=== PATIENT | female | born 1980 | race Caucasian/White ===

== ENCOUNTER 2020-06-14 11:15 | Emergency (ER) | payer OTHER, SELFPAY ==
--- NOTE | ~2020-06-14 | XR_ITS ---
EXAMINATION: XR chest 1V portable EXAM DATE: 06/14/2020 13:58 INDICATION: Chest pain, high blood pressure. TECHNIQUE: Portable AP frontal chest x-ray was obtained. There is no prior study for comparison. FINDINGS: The lungs are clear. There are no pleural effusions. The cardiomediastinal silhouette is within normal limits. There is no pneumothorax suspected. The bones and soft tissues are unremarkab le. IMPRESSION: Unremarkable chest x-ray exam. Reviewed, dictated and finalized at location A. OR CENTER DIRECTOR
--- NOTE | ~2020-06-14 | CT_ITS ---
EXAMINATION: CTA brain carotid EXAM DATE: 06/14/2020 14:48 INDICATION: Dizziness. TECHNIQUE: Noncontrast head CT. Spiral CTA of the carotid arteries was performed with intravenous i njection 100 cc of Omnipaque 350. Axial, coronal, sagittal reformatted images reviewed. Additional r eformatted images created on dedicated 3-D workstation. NASCET comparable standard used to assess th e degree of arterial stenosis. Spiral CT angiogram cerebral arteries performed with the same intrave nous injection of contrast. Source images of the brain CTA transferred to dedicated workstation for 3 -D rotational image creation. Coronal, sagittal maximum intensity pixel images also reviewed. The d ose-length product (DLP) for this examination was 1568.59 mGy-cm. The exposure was tailored accordi ng to patient size, and iterative reconstruction (ASIR) was used as additional dose reduction techniq ue. There is no prior study for comparison. FINDINGS: The right vertebral artery is dominant. There is no carotid stenosis. Some tortuosity of th e carotid arteries just before the skull base. There is no carotid or vertebral basilar arterial dis section or fibromuscular dysplasia. There are no cerebral artery aneurysms. There is symmetric cerebr al artery arborization. The sagittal, transverse and sigmoid sinuses enhance normally, no venous sinu s thrombosis. Internal cerebral veins also enhance normally. There is no acute intraparenchymal hemorrhage. No evidence of intraparenchymal brain mass lesion. N o evidence of acute infarction. There is no mass effect or midline shift. There is no obstructive hyd rocephalus suspected. There are no extra-axial collections. There are no calvarial acute fractures. IMPRESSION: 1. No acute intracranial findings.. 2. No carotid stenosis. Reviewed, dictated and finalized at location A. METRY ASSISTANT
[2020-06-14 11:30] VITALS: BP 168/101; PULSE 79; RESP 18; TEMP 37.4; O2SAT 99
--- NOTE | 2020-06-14 13:26 | ECG_ITS ---
Measurements Intervals [place] Rate: 83 P: 49 CT: 144 QRS: 76 QRSD: 102 T: 38 QT: 374 QTc: 440 Interpretive Statements SINUS RHYTHM WITH SINUS ARRHYTHMIA POSSIBLE LEFT ATRIAL ENLARGEMENT BORDERLINE ECG Electronically Signed On 06-14-2020 15:58:06 AUDITING SPECIALIST by Elkin Torrez D.O.
--- NOTE | 2020-06-14 13:44 | ED.GENADULT ---
HPI - General Adult General Chief complaint: Dizziness Stated complaint: dizzy/htn Source: patient History of Present Illness HPI narrative: Patient is a 40 y/o female complaining of moderate dizziness starting sometime between 10:00 AM and 10:30 AM this morning. She states she was working at home when this started. She felt her head was spinning and everything slowed down. She felt like she was going to pass out, but did not actually pass out. She checked her BP and it was 200s/120s. She denies any focal weakness or numbness. She has some mild left sided chest pain which she rates as 10. Related Data Home Medications Medication Instructions Recorded Confirmed alprazolam [Xanax] 0.5 mg PO DIRECTED PRN 06/21/19 06/22/19 ibuprofen 600 mg PO Q6H PRN 06/21/19 06/22/19 loratadine 10 mg PO DAILY PRN 06/21/19 06/22/19 naproxen sodium 440 mg PO BID PRN 06/21/19 06/22/19 ranitidine HCl 75 mg PO DIRECTED 06/21/19 06/22/19 venlafaxine 150 mg PO DAILY 06/21/19 06/22/19 Allergies Allergy/AdvReac Type Severity Reaction Status Date / Time Sulfa (Sulfonamide Allergy Mild Rash Verified 06/22/19 00:15 Antibiotics) morphine Allergy Unknown Rash Verified 06/22/19 00:15 Review of Systems Constitutional: Constitutional: Denies chills, Denies fever(s), Denies headache(s) and Denies weakness Eyes: Eyes: Denies blurry vision ENT: Denies headache(s) and Denies neck pain Cardiovascular: Cardiovascular: Reports chest pain and Denies dyspnea Respiratory: Respiratory: Denies cough and Denies dyspnea Gastrointestinal: Gastrointestinal: Denies abdominal pain, Denies diarrhea, Denies nausea and Denies vomiting Genitourinary: Genitourinary: Denies hematuria and Denies dysuria Musculoskeletal: Musculoskeletal: Denies back pain and Denies neck pain Neurologic: Reports dizziness, Denies headache(s) and Denies weakness PMFSH Past Medical History Medical History Migraines Surgical History Surgical History History of section Social History Social History Smoking packs per day: 1 Smoking cigarettes per day: 20.0 Years smoked: 12 Smoking pack-years: 12.00 Smoking status: Former smoker Tobacco type: cigarettes Second hand tobacco smoke exposure: No Smoking end date: 07/29/09 Alcohol intake: current Drinks per week: 1 Substance use: never Gender identity (if verbalized by the patient): Female Spiritual care concerns: Yes Agree to blood products: Yes Exam Const: General: no acute distress and well developed Orientation/consciousness: oriented to person, oriented to place, oriented to time and patient oriented x3 HENMT: Head: normocephalic Ears: external ears normal General nose exam: Normal external nose present Eyes: General: appearance normal, both eyes and all related structures Conjunctivae: conjunctivae normal Neck: Neck: normal visual inspection and full ROM Chest: Chest palpation & inspection: normal inspection of the chest and no tenderness Resp: Effort & Inspection: normal respiratory effort Auscultation: clear to auscultation bilaterally Cardio: Rate: regular rate Rhythm: regular rhythm GI: GI Palp: No abdominal tenderness and Yes Soft to palpation Skin: General skin exam: normal color and turgor normal Neuro: General: oriented to person, oriented to place, oriented to time and patient oriented x3 Cranial nerves: Yes CN's II-XII intact bilaterally Cognition (Neuro): normal cognition Speech: normal speech Motor exam (neuro): 5/5 motor strength present throughout Sensory Exam: normal sensation Coordination: [id number] test normal and [id number] test normal Extrem: General: normal to inspection, full ROM and no pedal edema Psych: Appearance: grossly normal Mental Status: mental status grossly normal Aff
[2020-06-14] MEDS: amLODIPine BESYLATE 5 MG TABLET 10 MG PO (13:50)
[2020-06-14 13:58] VITALS: BP 176/102; PULSE 100; RESP 18; O2SAT 100
[2020-06-14 14:07] LABS: Basophils Percent Auto 0.4 % (0.2-1.2); Eosinophils Absolute Auto 0.1 K/mm3 (0-0.3); Eosinophils Percent Auto 0.6 % (0-4.4); Hematocrit 41.9 % (37.0-47.0); Hemoglobin 13.7 g/dL (12.0-15.0); Immature Granulocyte Absolute 0.02 K/mm3 (0.00-0.031); Immature Granulocyte Percent A 0.2 % (0-0.5); Lymphocytes Absolute Auto 2.08 K/mm3 (0.9-3.2); Mean Corpuscular HGB Conc 32.7 g/dl (32-36); Mean Corpuscular Hemoglobin 28.4 pg (26-34); Mean Corpuscular Volume 86.7 fl (80-100); Mean Platelet Volume 9.9 fl (7.4-10.4); Monocytes Absolute Auto 0.5 K/mm3 (0.1-0.6); Monocytes Percent Auto 5.3 % (2.6-8.5); Neutrophils Absolute Auto 6.8 K/mm3 (1.3-6.7); Neutrophils Percent Auto 71.5 % (45.5-73.1); Platelet Count Result 320 k/mm3 (150-375); Red Blood Count 4.83 M/mm3 (4.2-5.4); White Blood Count 9.5 K/mm3 (4.5-10.0)
[2020-06-14 14:26] LABS: Alanine Aminotransferase 17 U/L (4-35); Albumin Level 4.3 g/dL (3.5-5.1); Alkaline Phosphatase 99 U/L (38-126); Anion Gap 8 mmol/L (8-16); Aspartate Amino Transferase 24 U/L (14-36); Bilirubin,Total 0.2 mg/dL (0.2-1.3); Calcium 9.7 mg/dL (8.4-10.2); Carbon Dioxide 29 mmol/L (22-30); Chloride 104 mmol/L (98-107); Estimated CRCL calculation 117 ml/min; Estimated Glomerular Filt Rate > 60; Glucose 89 mg/dL (65-105); Potassium 4.2 mmol/L (3.4-5.0); Sodium 141 mmol/L (137-145)
[2020-06-14 14:36] LABS: Troponin I < 0.012 ng/mL (0.000-0.034)
[2020-06-14 14:39] LABS: Blood Urea Nitrogen 12 mg/dL (7-17)
[2020-06-14 14:45] LABS: Add Urine Microscopic? NO; Appearance Urine Clear (Clear); Bilirubin Urine Negative (Negative); Blood Urine Negative (Negative); Color Urine Yellow (Yellow); Glucose Urine UA Negative (Negative); Ketones Urine Negative (Negative); Leukocyte Esterase Ur Negative LEU/UL (Negative); Nitrate Urine Negative (Negative); Protein Urine Negative (Negative); Specific Grav Ur 1.013 (1.001-1.035); Urobilinogen Urine Negative mg/dL (<2.0)
[2020-06-14 16:00] VITALS: BP 170/86; PULSE 86; RESP 26; O2SAT 100
[2020-06-14 17:15] LABS: Troponin I < 0.012 ng/mL (0.000-0.034)
== END 2020-06-14 18:13 | disposition home or self-care (01) ==
PROVIDERS: Emergency Provider Emergency Medicine; PCP Family Medicine
DX: R42 Dizziness and giddiness (principal); I10 Essential (primary) hypertension; R07.9 Chest pain, unspecified; Z87.891 Personal history of nicotine dependence; R94.31 Abnormal electrocardiogram [ECG] [EKG]
CPT/HCPCS: 36415; 70496; 70498; 71045; 80053; 81003; 81025; 84484; 85025; 93005; 99284; A9270; Q9967

== ENCOUNTER 2021-11-11 00:18 | Emergency (ER) | payer OTHER, SELFPAY ==
--- NOTE | ~2021-11-11 | XR_ITS ---
EXAMINATION: XR chest 2V DATE: 11/11/2021 00:51 INDICATION: Left chest pain. TECHNIQUE: Frontal and lateral views of the chest were obtained. COMPARISON: Chest single view 06/14/2020 FINDINGS: The chest demonstrates clear lungs without pneumonia, pleural effusion, or pneumothorax. Th e heart size is normal. IMPRESSION: 1. No acute cardiopulmonary disease. Reviewed, dictated and finalized at location A.
[2021-11-11 00:18] VITALS: BP 151/93; PULSE 117; RESP 23; TEMP 36.2; O2SAT 100
--- NOTE | 2021-11-11 00:23 | ED.CHESTPAIN ---
HPI - Chest Pain General Chief Complaint: Chest Pain Stated Complaint: CHEST PAIN History of Present Illness HPI narrative: Patient is a 41-year-old female with a history of hypertension and anxiety who presents to the emergency department via EMS for chest pain that she developed about 45 minutes prior to arrival. Patient states she was eating a bowl of cereal when she suddenly felt flushed, anxious, hot and developed a sharp pain in her left chest. Rates the pain remained for several minutes, she called EMS who recommended taking 4 baby aspirin. She states the pain is now about a 1 out of 10 after taking aspirin. Reports this history of similar type sensation once about 4 months ago, but has never had this worked up. She denies cough, shortness of breath, fevers, vomiting, calf pain, leg swelling. No OCP use. Related Data Home Medications Medication Instructions Recorded Confirmed ibuprofen 600 mg PO Q6H PRN 06/21/19 06/22/19 cholecalciferol (vitamin D3) 50 50 mcg PO DAILY 09/19/20 mcg (2,000 unit) capsule fluticasone propionate 50 1 spray INTRANASAL DAILY 09/19/20 mcg/actuation nasal spray,suspension loratadine [Claritin] 10 mg PO DAILY 11/11/21 multivitamin [A To Z Multivitamin] 1 tablet PO DAILY 11/11/21 Allergies Allergy/AdvReac Type Severity Reaction Status Date / Time amlodipine Allergy Severe Rash Verified 11/11/21 00:24 Sulfa (Sulfonamide Allergy Mild Rash Verified 11/11/21 00:24 Antibiotics) morphine Allergy Unknown Rash Verified 11/11/21 00:24 Review of Systems Review of Systems: Gen.: Reports flushing. Denies fevers or chills Eyes: Denies eye pain or visual change ENT: Denies congestion Respiratory: Denies shortness of breath or cough CV: Reports chest pain and palpitations. GI: Denies abdominal pain nausea, emesis or diarrhea : denies burning, urgency, frequency or hematuria Musculoskeletal: Denies back pain or muscle pain Neuro: Denies numbness, tingling, weakness or focal weakness Skin: Denies rash Except as documented, all other systems reviewed and negative All systems reviewed & are unremarkable except as noted in HPI and below PMFSH Past Medical History Medical History Bronchitis Chicken pox Migraines Psychiatric care Surgical History Surgical History History of section (~04/02/10) Family History Family History Father Hypertension Diabetes mellitus Depression Anxiety PTSD (post-traumatic stress disorder) Mother Breast cancer Hx of mastectomy H/O total hysterectomy OCD (obsessive compulsive disorder) Depression Sibling Depression OCD (obsessive compulsive disorder) Social History Social History Social History: Patient drinks 2 cups of coffee daily Smoking packs per day: 1 Smoking cigarettes per day: 20.0 Years smoked: 15 Smoking pack-years: 15.00 Smoking status: Former smoker Tobacco type: cigarettes Second hand tobacco smoke exposure: No Smoking end date: 07/29/08 Alcohol intake: current Alcohol use details: Patient drinks rarely Substance use: never Substance use type: does not use 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 Head: Normocephalic and atraumatic. EYES: PERRLA/EOMI, conjunctivae clear NOSE: No nasal drainage EARS: External ear normal in appearance THROAT: Oropharynx is clear. Mucous membranes are moist. NECK: Supple. No adenopathy, no masses. RESPIRATORY: Clear to auscultation th
[2021-11-11 00:25] VITALS: PULSE 112
--- NOTE | 2021-11-11 00:28 | ECG_ITS ---
Measurements Intervals [place] Rate: 107 P: 40 MD: 152 QRS: 68 QRSD: 106 T: 29 QT: 334 QTc: 446 Interpretive Statements SINUS TACHYCARDIA NONSPECIFIC T-WAVE ABNORMALITY ABNORMAL ECG Electronically Signed On 11-11-2021 11:47:21 CDT by Tip Holly M.D.
[2021-11-11 00:49] LABS: Basophils Percent Auto 0.3 % (0.2-1.2); Eosinophils Absolute Auto 0.1 K/mm3 (0-0.3); Eosinophils Percent Auto 1.1 % (0-4.4); Hematocrit 41.4 % (37.0-47.0); Hemoglobin 13.1 g/dL (12.0-15.0); Immature Granulocyte Absolute 0.03 K/mm3 (0.00-0.031); Immature Granulocyte Percent A 0.3 % (0-0.5); Lymphocytes Absolute Auto 2.95 K/mm3 (0.9-3.2); Lymphocytes Percent Auto 25.6 % (18.3-44.2); Mean Corpuscular HGB Conc 31.6 g/dl (32-36); Mean Corpuscular Hemoglobin 28.4 pg (26-34); Mean Corpuscular Volume 89.6 fl (80-100); Mean Platelet Volume 9.8 fl (7.4-10.4); Monocytes Absolute Auto 0.5 K/mm3 (0.1-0.6); Monocytes Percent Auto 4.6 % (2.6-8.5); Neutrophils Absolute Auto 7.9 K/mm3 (1.3-6.7); Neutrophils Percent Auto 68.1 % (45.5-73.1); Platelet Count Result 297 k/mm3 (150-375); Red Blood Count 4.62 M/mm3 (4.2-5.4); Red Cell Distribution Width 13.2 % (11.5-14.5); White Blood Count 11.5 K/mm3 (4.5-10.0)
[2021-11-11 01:01] LABS: Alanine Aminotransferase 17 U/L (4-35); Albumin Level 4.2 g/dL (3.5-5.1); Alkaline Phosphatase 105 U/L (38-126); Anion Gap 8 mmol/L (8-16); Aspartate Amino Transferase 23 U/L (14-36); Bilirubin,Total < 0.1 mg/dL (0.2-1.3); Blood Urea Nitrogen 15 mg/dL (7-17); Calcium 9.1 mg/dL (8.4-10.2); Carbon Dioxide 26 mmol/L (22-30); Chloride 104 mmol/L (98-107); Estimated CRCL calculation 106 ml/min; Estimated Glomerular Filt Rate > 60; Glucose 146 mg/dL (65-110); Potassium 3.6 mmol/L (3.4-5.0); Sodium 138 mmol/L (137-145)
[2021-11-11 01:13] LABS: Troponin I < 0.012 ng/mL (0.000-0.034)
[2021-11-11 02:01] VITALS: BP 149/79; PULSE 100; RESP 20; O2SAT 98
== END 2021-11-11 02:18 | disposition home or self-care (01) ==
PROVIDERS: Physician Assistant; Emergency Provider Emergency Medicine; PCP Emergency Medicine
DX: F41.9 Anxiety disorder, unspecified (principal); I10 Essential (primary) hypertension; Z87.891 Personal history of nicotine dependence; R00.0 Tachycardia, unspecified; R94.31 Abnormal electrocardiogram [ECG] [EKG]
CPT/HCPCS: 36415; 71046; 80053; 84443; 84484; 85025; 93005; 99284

== ENCOUNTER 2024-01-13 15:02 | Emergency (ER) | payer OTHER, SELFPAY ==
--- NOTE | 2024-01-13 15:05 | ED.FEMALEGU ---
HPI - Female Genitourinary General Chief complaint: Urogenital-Female Stated complaint: Urinary Problems Time Seen by Provider: 01/13/24 15:20 Source: patient, RN notes reviewed and old records reviewed Mode of arrival: ambulatory Limitations: no limitations History of Present Illness HPI Narrative: 42-year-old female presents to the [facility] with 1 day history of frequency, urgency, burning with urination Patient states that she took 1 azo last night and improved but symptoms are still there. Related Data Home Medications Medication Instructions Recorded Confirmed ibuprofen 600 mg tablet 600 mg PO Q6H PRN Pain 06/21/19 01/13/24 fluticasone propionate 50 1 spray intranasal DAILY 09/19/20 01/13/24 mcg/actuation nasal spray,suspension (Flonase Allergy Relief) loratadine 10 mg tablet (Claritin) 10 mg PO DAILY 11/11/21 01/13/24 multivitamin 1 tablet PO DAILY 11/11/21 01/13/24 cranberry extract 500 mg capsule 500 mg PO DAILY 07/01/23 01/13/24 Allergies Allergy/AdvReac Type Severity Reaction Status Date / Time amlodipine Allergy Severe Rash Verified 01/13/24 15:32 Sulfa (Sulfonamide Allergy Mild Rash Verified 01/13/24 15:32 Antibiotics) morphine Allergy Unknown Rash Verified 01/13/24 15:32 Review of Systems Review of Systems: All systems reviewed & are unremarkable except as noted in HPI and below Constitutional: Constitutional: Reports no additional constitutional complaints Eyes: Eyes: Reports no additional eye complaints ENT: Reports system reviewed and no additional complaints, except as documented Cardiovascular: Cardiovascular: Reports no additional cardiovascular complaints, Denies chest pain and Denies dyspnea Respiratory: Respiratory: Reports no additional respiratory complaints, Denies chest congestion, Denies cough and Denies dyspnea Gastrointestinal: Gastrointestinal: Reports no additional gastrointestinal complaints, Denies abdominal pain, Denies nausea and Denies vomiting Genitourinary: Genitourinary: Reports as per HPI Musculoskeletal: Musculoskeletal: Reports no additional musculoskeletal complaints Integumentary/Breasts: Skin/Breast: Reports system reviewed and no additional complaints, except as docu Neurologic: Reports system reviewed and no additional complaints, except as documented Psychiatric: Psychiatric: Reports no additional psychiatric complaints Allergic/Immunologic: Allergic/Immunologic: Reports no additional allergic/immunologic complaints PMFSH Past Medical History Medical History Bronchitis Chicken pox Migraines Psychiatric care Surgical History Surgical History History of section (~04/02/10) Family History Family History Father Hypertension Diabetes mellitus Depression Anxiety PTSD (post-traumatic stress disorder) Mother Breast cancer Hx of mastectomy H/O total hysterectomy OCD (obsessive compulsive disorder) Depression Sibling Depression OCD (obsessive compulsive disorder) Social History Social History Social History: Patient drinks 2 cups of coffee daily Smoking packs per day: 1 Smoking cigarettes per day: 20.0 Years smoked: 15 Smoking pack-years: 15.00 Smoking status: Former smoker Tobacco type: cigarettes Second hand tobacco smoke exposure: No Smoking end date: 07/29/08 Alcohol intake: current Alcohol use details: Patient drinks rarely Substance use: never Substance use type: does not use Do You Feel Safe in your Home?: Yes Lack of Transportation: No Lack of Food: Never True Current Housing: I Have Housing Concerned About Future Housing: No Difficulty Paying Gas/Electric Bills: No Difficulty Paying for Meds: No Currently Unemployed: No Education: Associate De
[2024-01-13 15:14] VITALS: BP 134/100; PULSE 59; RESP 18; TEMP 36.2; O2SAT 100
== END 2024-01-13 15:41 | disposition home or self-care (01) ==
PROVIDERS: Emergency Provider Nurse Practitioner; PCP Emergency Medicine
DX: N30.01 Acute cystitis with hematuria (principal); B96.20 Unspecified Escherichia coli [E. coli] as the cause of diseases classified elsewhere; B95.1 Streptococcus, group B, as the cause of diseases classified elsewhere; Z87.891 Personal history of nicotine dependence
CPT/HCPCS: 81003; 87077; 87086; 87088; 87147; 87186; 99213; G0463

== ENCOUNTER 2024-04-04 12:09 | Emergency (ER) | payer OTHER, SELFPAY ==
[2024-04-04 12:29] VITALS: BP 149/88; PULSE 61; RESP 16; TEMP 36.3; O2SAT 99
[2024-04-04 12:34] LABS: EDUAAPPEAR Clear; EDUABILI Negative (Negative); EDUABLOOD 2+ (Negative); EDUACOLOR1 Orange; EDUAGLUCOSE Trace (Negative); EDUAKETONE Negative (Negative); EDUALEUKO 3+ (Negative); EDUANITRATE Positive (Negative); EDUAPH 5.5; EDUAPROTEIN Negative (Negative)
--- NOTE | 2024-04-04 12:36 | ED.FEMALEGU ---
HPI - Female Genitourinary General Chief complaint: Urogenital-Female Stated complaint: urinary issue Time Seen by Provider: 04/04/24 12:36 Source: patient Mode of arrival: ambulatory Limitations: no limitations History of Present Illness HPI Narrative: 44-year-old female presents with complaint of a lower abdominal pressure, urinary frequency, dysuria for 2-3 days. Afebrile. No concern for . All systems reviewed and negative except as noted above. Related Data Home Medications Medication Instructions Recorded Confirmed ibuprofen 600 mg tablet 600 mg PO Q6H PRN Pain 06/21/19 04/04/24 loratadine 10 mg tablet (Claritin) 10 mg PO DAILY 11/11/21 04/04/24 multivitamin 1 tablet PO DAILY 11/11/21 04/04/24 cranberry extract 500 mg capsule 500 mg PO DAILY 07/01/23 04/04/24 Allergies Allergy/AdvReac Type Severity Reaction Status Date / Time amlodipine Allergy Severe Rash Verified 04/04/24 12:13 Sulfa (Sulfonamide Allergy Mild Rash Verified 04/04/24 12:13 Antibiotics) morphine Allergy Unknown Rash Verified 04/04/24 12:13 Review of Systems Review of Systems: CONSTITUTIONAL: Denies fever, chills, or sweats. EYES: Denies visual changes, redness, or discharge. ENT: Denies rhinorrhea, congestion, sore throat, or otalgia. CARDIOVASCULAR: Denies chest pain, palpitations, or edema. RESPIRATORY: Denies cough or dyspnea. GASTROINTESTINAL: reports lower abdominal pressure. Denies nausea, vomiting, or diarrhea. GENITOURINARY: Reports dysuria, frequency. Denies hematuria. SKIN: Denies rash or itching. MUSCULOSKELETAL: Denies back pain, joint pain, or myalgia. NEUROLOGIC: Denies headache, numbness, or weakness. PSYCHIATRIC: Denies anxiety or depression. All other systems reviewed are negative, except as documented in HPI. 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) Bronchitis Chicken pox Migraines Psychiatric care Surgical History Surgical History History of section (~04/02/10) Family History Family History Father Hypertension Diabetes mellitus Depression Anxiety PTSD (post-traumatic stress disorder) Mother Breast cancer Hx of mastectomy H/O total hysterectomy OCD (obsessive compulsive disorder) Depression Sibling Depression OCD (obsessive compulsive disorder) Social History Social History Social History: Patient drinks 2 cups of coffee daily Smoking packs per day: 1 Smoking cigarettes per day: 20.0 Years smoked: 15 Smoking pack-years: 15.00 Smoking status: Former smoker Tobacco type: cigarettes Second hand tobacco smoke exposure: No Smoking end date: 07/29/08 Alcohol intake: current Alcohol use details: Patient drinks rarely Substance use: never Substance use type: does not use Do You Feel Safe in your Home?: Yes Lack of Transportation: No Lack of Food: Never True Current Housing: I Have Housing Concerned About Future Housing: No Difficulty Paying Gas/Electric Bills: No Difficulty Paying for Meds: No Currently Unemployed: No Education: Associate Degree Difficulty w/ Childcare or Family Care: No Occupation/Education: occupation 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 There is no relevant family history pertinent to the presenting complaint. Exam Narrative: GENERAL: This is a well-nourished, well-develop
== END 2024-04-04 12:45 | disposition home or self-care (01) ==
PROVIDERS: Emergency Provider Nurse Practitioner Family; PCP Emergency Medicine
DX: N39.0 Urinary tract infection, site not specified (principal); Z87.891 Personal history of nicotine dependence
CPT/HCPCS: 81003; 87077; 87086; 87088; 99213; G0463

== ENCOUNTER 2024-12-22 12:48 | Emergency (ER) | payer OTHER, SELFPAY ==
[2024-12-22 12:55] VITALS: BP 147/81; PULSE 74; RESP 16; TEMP 36.4; O2SAT 99
--- NOTE | 2024-12-22 13:18 | ED.EAR ---
HPI - Ear Problem General Chief complaint: Ear Stated complaint: EARACHE Time Seen by Provider: 12/22/24 13:18 Source: patient Mode of arrival: ambulatory Limitations: no limitations History of Present Illness HPI Narrative: Patient is a 44 year old female who presents to the clinic with right ear pain with muffled hearing since Saturday. She states that she uses an ear piece for work, and noticed that it was breaking down. She has been taking Tylenol over the counter for pain, with minimal relief. She denies noticing any foreign bodies come out of her ear. Related Data Home Medications ?Medication ?Instructions ?Recorded ?Confirmed ?Last Taken ?Type ibuprofen 600 mg tablet 600 mg PO Q6H PRN Pain 06/21/19 11/16/24 Unknown History loratadine 10 mg tablet (Claritin) 10 mg PO DAILY 11/11/21 11/16/24 Unknown History multivitamin 1 tablet PO DAILY 11/11/21 11/16/24 Unknown History cranberry extract 500 mg capsule 500 mg PO DAILY 07/01/23 11/16/24 Unknown History biotin 1,250 mcg-collagen 50 1 tablet PO DAILY 07/14/24 11/16/24 Unknown History mg-vit C 67.5 mg-vit E-herbal chew tablet (Alive Hair, Skin and Nails) cholecalciferol (vitamin D3) 50 50 mcg PO DAILY 07/14/24 11/16/24 Unknown History mcg (2,000 unit) capsule omega 7-irl-bgn-fish oil 1,200 mg 1 cap PO DAILY 07/14/24 11/16/24 Unknown History (144 mg-216 mg) capsule (Fish Oil) buspirone 10 mg tablet See Rx Instructions .Route .COMPLEX 11/16/24 Unknown History Allergies Allergy/AdvReac Type Severity Reaction Status Date / Time amlodipine Allergy Severe Rash Verified 12/22/24 13:01 Sulfa (Sulfonamide Allergy Mild Rash Verified 12/22/24 13:01 Antibiotics) morphine Allergy Unknown Rash Verified 12/22/24 13:01 Review of Systems Review of Systems: CONSTITUTIONAL: Denies malaise, chills, ?or fever. EYES: Denies visual changes, redness, or discharge. ENT: Denies rhinorrhea, congestion, sinus pain, and sore throat. ?Reports right ear pain. CARDIOVASCULAR: Denies chest pain, palpitations, or edema. RESPIRATORY: Denies cough or dyspnea. GASTROINTESTINAL: Denies abdominal pain, nausea, vomiting, diarrhea SKIN: Denies rash or itching. MUSCULOSKELETAL: Denies myalgia. NEUROLOGIC: Denies headache. 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) Migraines Surgical History Surgical History History of section (~04/02/10) Family History Family History Father Hypertension Diabetes mellitus Depression Anxiety PTSD (post-traumatic stress disorder) Mother Breast cancer Hx of mastectomy H/O total hysterectomy OCD (obsessive compulsive disorder) Depression Sibling Depression OCD (obsessive compulsive disorder) Social History Social History Social History: Patient drinks 2 cups of coffee daily Smoking packs per day: 1 Smoking cigarettes per day: 20.0 Years smoked: 15 Smoking pack-years: 15.00 Smoking status: Former smoker Tobacco type: cigarettes Second hand tobacco smoke exposure: No Smoking end date: 07/29/08 Alcohol intake: current Alcohol use details: Patient drinks rarely Substance use: never Substance use type: does not use Do You Feel Safe in your Home?: Yes Lack of Transportation: No Lack of Food: Never True Current Housing: I Have Housing Concerned About Future Housing: No Difficulty Paying Gas/Electric Bills: No Difficulty Paying for Meds: No Currently Unemployed: No Education: Associate Degree Difficulty w/ Childcare or Family Care: No Occupation/Education: occupation 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 Please see nursing chart for further information. There is no relevant family history pertinent to the presenting complaint. Exam Narrative: GENERAL: Well-appearing, well-nourished, and in no acute distress. HEAD: Normocephalic EYES: PERRLA, conjunctivae clear ENT: Nares clear. Mucous membranes moist. Right TM erythematous, bulging and intact; canal erythematous and edematous, no drainage, tragal tenderness noted. Left TM with normal light reflex. Oropharynx not erythematous without lesions. ?no drooling, no hoarseness, no trismus, uvula midline. NECK: Supple. No lymphadenopathy CHEST: Clear to auscultation, breath sounds equal. No wheezing, rhonchi, rales, or stridor. No respiratory distress, speaks in full sentences. HEART: Regular rate and rhythm. No murmur heard. SKIN: Warm, dry, no rash. NEURO: Alert and oriented x3. PSYCH: Normal mood and affect. Course Course Level of Care: Express Care Visit Vital Signs Vital signs: Vital Signs Temperature 97.6 F 12/22/24 12:55 Pulse Rate 74 12/22/24 12:55 Respiratory Rate 16 12/22/24 12:55 Blood Pressure 147/81 H 12/22/24 12:55 Pulse Oximetry 99 12/22/24 12:55 Oxygen Delivery Room Air 12/22/24 12:55 Temperature 97.6 F 12/22/24 12:55 Pulse Rate 74 12/22/24 12:55 Respiratory Rate 16 12/22/24 12:55 Blood Pressure 147/81 H 12/22/24 12:55 Pulse Oximetry 99 12/22/24 12:55 Oxygen Delivery Room Air 12/22/24 12:55 Reviewed Medical Decision Making MDM Narrative Medical decision making narrative: Discussed physical exam findings. Augmentin and Cipro drops given for otitis media and otitis externa. Advised supportive measures and signs/symptoms to go to the ER. Pt is appropriate for outpatient treatment and follow up. Differential Diagnosis Differential Diagnosis: otitis externa, TM rupture, cholesteatoma, foreign body, auricular perichondritis, otitis media, bullous myringitis, mastoiditis, Vital Signs Vital Signs: Vital Signs Temperature 97.6 F 12/22/24 12:55 Pulse Rate 74 12/22/24 12:55 Respiratory Rate 16 12/22/24 12:55 Blood Pressure 147/81 H 12/22/24 12:55 Pulse Oximetry 99 12/22/24 12:55 Oxygen Delivery Room Air 12/22/24 12:55 Temperature 97.6 F 12/22/24 12:55 Pulse Rate 74 12/22/24 12:55 Respiratory Rate 16 12/22/24 12:55 Blood Pressure 147/81 H 12/22/24 12:55 Pulse Oximetry 99 12/22/24 12:55 Oxygen Delivery Room Air 12/22/24 12:55 Critical Care Time Critical Care Time Critical Care Time: No Discharge Plan Discharge Clinical Impression: Otitis media Qualifiers: Otitis media type: suppurative Chronicity: acute Laterality: right Recurrence: non-recurrent Spontaneous tympanic membrane rupture: without spontaneous rupture Qualified Code(s): H66.001 - Acute suppurative otitis media without spontaneous rupture of ear drum, right ear Otitis externa Qualifiers: Otitis externa type: unspecified type Chronicity: acute Laterality: right Qualified Code(s): H60.501 - Unspecified acute noninfective otitis externa, right ear Patient Disposition: Home Condition: Stable Instructions: Ear Infection (ED) Additional Instructions: Take antibiotics as directed. Symptomatic treatment includes: rest, fluids, and increase humidity of the air at home. Tylenol every 8 hours as needed to reduce fever, pain Please schedule a follow-up visit with your personal physician for further evaluation and treatment within 3-5days. If your symptoms persist, change or worsen significantly, go to the emergency department for further evaluation. Patient Language: Swiss Prescriptions: New amoxicillin-pot clavulanate 875-125 mg tablet 1 tablet PO Q12H 7 Days Qty: 14 0RF ciprofloxacin-dexamethasone 0.3-0.1 % drops,suspension 4 drp EACH EAR Q12H 7 Days Qty: 7.5 0RF No Action buspirone 10 mg tablet See Rx Instructions .ROUTE .COMPLEX Dose Instruction: TAKE 1 TABLET BY MOUTH TWICE DAILY Rx Instructions: TAKE 1 TABLET BY MOUTH ONCE DAILY alprazolam 0.5 mg tablet 0.5 mg PO BID PRN (Reason: anxiety) Qty: 30 1RF cranberry extract 500 mg capsule 500 mg PO DAILY Rx Instructions: administer with meals venlafaxine 150 mg capsule,extended release 24hr See Rx Instructions .ROUTE .COMPLEX Qty: 90 2RF Dose Instruction: TAKE 1 CAPSULE BY MOUTH DAILY Rx Instructions: TAKE 1 CAPSULE BY MOUTH DAILY metoprolol succinate [Toprol XL] 25 mg tablet extended release 24 hr 25 mg PO DAILY Qty: 90 2RF multivitamin [A To Z Multivitamin] Tablet 1 tablet PO DAILY loratadine [Claritin] 10 mg Tablet 10 mg PO DAILY ibuprofen 600 mg Tablet 600 mg PO Q6H PRN (Reason: Pain) lisinopril 40 mg tablet See Rx Instructions .ROUTE .COMPLEX Qty: 90 3RF Dose Instruction: TAKE 1 TABLET BY MOUTH DAILY Rx Instructions: TAKE 1 TABLET BY MOUTH DAILY omega 7-omt-siv-fish oil [Fish Oil] 1,200 (144-216) mg capsule 1 cap PO DAILY cholecalciferol (vitamin D3) 50 mcg (2,000 unit) capsule 50 mcg PO DAILY Alive Hair, Skin and Nails 1,250 mcg-50 mg -67.5 mg-15 mg tablet,chewable 1 tablet PO DAILY Follow-up/Referrals: Oswaldo Novoa MD [Primary Care Provider] - Stand Alone Forms: Work/School Release IP Time of Disposition: 13:22
== END 2024-12-22 13:25 | disposition home or self-care (01) ==
PROVIDERS: PCP Emergency Medicine
DX: H66.001 Acute suppurative otitis media without spontaneous rupture of ear drum, right ear (principal); H60.501 Unspecified acute noninfective otitis externa, right ear; Z87.891 Personal history of nicotine dependence
CPT/HCPCS: 99213; G0463